=== PATIENT | male | born 1975 | race Caucasian/White ===

== ENCOUNTER 2019-12-28 13:39 | Emergency (ER) | payer MEDICAID, OTHER ==
--- NOTE | 2019-12-28 14:00 | EDM.PDOC ---
ED HPI GENERAL MEDICAL PROBLEM - General Chief Complaint: Genitourinary Problem Stated Complaint: SPOKE TO NURSE Time Seen by Provider: 12/28/19 13:55 - Related Data Allergies Allergy/AdvReac Type Severity Reaction Status Date / Time No Known Allergies Allergy Verified 03/16/15 05:36 Home Meds: Home Meds Albuterol [Proair HFA] 1 puff INH ASDIRECTED 03/16/15 [History] Past Medical History Other Respiratory History: uses an inhaler but does not know why. Course - Orders/Labs/Meds Orders: Active Orders 24 hr Category Date Time Status UA RFX AMILCAR AND CULT IF INDIC [URIN] Stat Lab 12/28/19 13:55 Ordered Departure - Discharge Information Referrals: Kitty Hanna DO [Primary Care Provider] - - My Orders Last 24 Hours: My Active Orders 12/28/19 13:55 UA RFX AMILCAR AND CULT IF INDIC [URIN] Stat - Assessment/Plan Last 24 Hours: My Active Orders 12/28/19 13:55 UA RFX AMILCAR AND CULT IF INDIC [URIN] Stat
[2019-12-28 14:06] VITALS: BP 139/86; PULSE 78
== END 2019-12-28 14:05 | disposition left against medical advice (07) ==
LOC: MW.ED 13:39
DX: Z53.21 Procedure and treatment not carried out due to patient leaving prior to being seen by health care provider (principal)